=== PATIENT | female | born 1985 | race American Indian/Alaskan Native ===

== ENCOUNTER 2017-07-17 11:26 | Emergency (ER) | payer OTHER ==
--- NOTE | 2017-07-17 12:42 | OBDCSUM ---
Datetime: 07/17/2017 12:41 Discharged to, Provider: Home Follow up at, Provider: OB Disch Instr Activity: Normal activity Disch Instr Diet: Regular Discharge Instructions, Provider: Routine instructions given Discharge Time: 07/17/2017 12:41 Follow up in weeks, Provider: this week Disch Referrals: None Contraception discussed, Prov: Yes Discharge Diagnosis Prov Other: cerclage removed
--- NOTE | 2017-07-17 12:42 | OBHP ---
Datetime: 07/17/2017 12:15 IP Adm Impression: , intrauterine IP Chief Complaint Other: cerclage removal IP Admit Plan: Observation/Evaluation; Discharge home Admit Comment, IP Provider: Patient is a @ 35.5 wks for cerclage removal. Patient has a histo ry of 3 terminations with D_C, LEEP procedure, rescue Cerclage placement for short cervix at 20 weeks . Otherwise no other antepartum or surgical issues. No allergies, no currently medical Patient observed on CEFM, cleaned with betadine, speculum inserted, cerclage found and drabed with ring forcep, cut under knot, removed under entirety, shown to patient. VE=closed/50/-3. KLO=592 mod, +accels, no decels TOCO = one contraction noted A/P 1. Patient to be observed for labor. FHR reactive and reassuring. Will discharge patient and follo w up in office this week Pelvic Type - PN: Adequate Extremities - PN: Normal Abdomen - PN: Normal Back - PN: Normal Breast - PN: Normal Lungs - PN: Normal Heart - PN: Normal Thyroid - PN: Normal Neurologic - PN: Normal HEENT - PN: Normal General - PN: Normal FHR - Baseline A Provider: 135 Vital Signs Provider: Reviewed; Within Normal Limits NICHD Variability Prov Fetus A: Moderate 6-25bpm NICHD Accel Fetus A IP Provider: [id number] NICHD Decel Fetus A IP Provider: None Dilatation, Provider: closed Effacement, Provider: 50 Station, Provider: -3 Genitourinary Exam: Normal DTRs - PN: Normal
[2017-07-17 17:51] VITALS: BP 104/67; PULSE 93; TEMP 97.8; O2SAT 100
== END 2017-07-17 13:30 | disposition home or self-care (01) ==
LOC: H.EROB2 11:26 → H.L&D 11:58 → H.EROB2 13:30
DX: O26.873 Cervical shortening, third trimester (principal); Z3A.35 35 weeks gestation of pregnancy; O09.93 Supervision of high risk pregnancy, unspecified, third trimester

== ENCOUNTER 2017-08-20 20:45 | Inpatient (IN) | payer OTHER ==
[2017-08-20 20:58] VITALS: BMI 27.1
[2017-08-20] MEDS ORDERED: Lactated Ringer's 1,000 ML IV SCH (21:45)
[2017-08-20 22:15] VITALS: RESP 18; O2SAT 100
[2017-08-20 22:41] LABS: BASO % 0.4 % (0.0-2.0); EOS % 0.4 % (0.0-4.0); HEMOGLOBIN 10.9 g/dL (12.0-16.0); LYMPH # 2.6 K/uL (1.0-4.3); LYMPH % 26.2 % (20.0-40.0); MEAN CELL VOLUME 96.7 fl (81.0-99.0); MEAN CORPUSCULAR HGB CONC 32.1 g/dL (33.0-37.0); MEAN PLATELET VOLUME 7.9 fl (7.2-11.7); MONO # 0.9 K/uL (0.0-0.8); MONO % 9.3 % (0.0-10.0); NEUT # 6.4 K/uL (1.8-7.0); NEUT % 63.7 % (50.0-75.0); NRBC % 0.1 % (0.0-0.0); RBC 3.5 Mil/uL (3.80-5.20); RED CELL DISTRIBUTION WIDTH 13.6 % (11.5-14.5); WHITE BLOOD COUNT 10.1 K/uL (4.8-10.8)
[2017-08-21] MEDS ORDERED: Oxytocin 30 units/LR 500ML 30 U/500 ML BAG IV ONE (09:04)
--- NOTE | 2017-08-21 09:25 | OBPN ---
Datetime: 08/21/2017 09:21 IP Progress Impression: Normal progression of labor IP Informed Consent Obtain: Vaginal Delivery IP Procedures: Sterile Vag Exam IP Progress Plan: Continue present management Membranes, Provider: Intact Contraction Comments Provider: q 3-4 mins FHR - Baseline A Provider: 120 IP Progress Note Comment: Patient reports increased pain and pressure. Patient does not want pain me dication at this time. VE=2/70/-1 WMV=064 mod cuca, +accels, no decels TOCO = ctxning q 3-4 mins A/P 1. Patient progressing well. Will have pt to have light food this am, then will continue induction with Pitocin 2. Offered pain medication at any time 3. CEFM and TOCO Vital Signs Provider: Reviewed; Within Normal Limits NICHD Accel Fetus A IP Provider: [id number] NICHD Variability Prov Fetus A: Moderate 6-25bpm Dilatation, Provider: 2 Effacement, Provider: 70 Station, Provider: -1 NICHD Decel Fetus A IP Provider: None Datetime: 08/20/2017 22:05 FHR Category Provider Fetus A: Category I
[2017-08-21] MEDS: Lactated Ringer's 1,000 ML IV SCH ×2 (10:30→11:50)
[2017-08-21] MEDS ORDERED: Fentanyl/Bupivacaine HCl 250 ML EPI ONE (14:41)
[2017-08-21] MEDS ORDERED: Bupivacaine HCl 0.25% PF (10 ml) Inj ONE (14:41)
[2017-08-21] MEDS ORDERED: Nalbuphine 20 mg/ml Inj (1 ml) IVP PRN (15:00)
--- NOTE | 2017-08-21 16:53 | OBPN ---
Datetime: 08/21/2017 16:49 IP Progress Impression: Normal progression of labor IP Informed Consent Obtain: Vaginal Delivery IP Procedures: Sterile Vag Exam IP Progress Plan: Continue present management Membranes, Provider: Ruptured Contraction Comments Provider: q 3-4 min FHR - Baseline A Provider: 150 IP Progress Note Comment: Patient comfortable s/p epidural VE=3-4/50/-1, AROM, clear THO=975 mod cuca, +accels, early decels and variable decelerations TOCO = contraction q 3-4 mins A/P 1. Patient comfortable, continue Pitocin augmentation, currently at 2 units/min. 2. CEFm and TOCO 3. Re-evaluate as needed Vital Signs Provider: Reviewed; Within Normal Limits NICHD Variability Prov Fetus A: Moderate 6-25bpm Dilatation, Provider: 3-4 Effacement, Provider: 80 Station, Provider: -1 NICHD Decel Fetus A IP Provider: Early; Variable
--- NOTE | 2017-08-21 18:33 | OBPN ---
Datetime: 08/21/2017 18:28 IP Progress Impression: Normal progression of labor IP Informed Consent Obtain: Vaginal Delivery IP Procedures: Sterile Vag Exam IP Progress Plan: Continue present management Membranes, Provider: Ruptured Contraction Comments Provider: q 2-4 mins FHR - Baseline A Provider: 125 IP Progress Note Comment: Patient comfortable, progressing in labor VE=5-6/100/0 XLO=723 mod cuca, +accels, no decels TOCO = hussain q 2-4 mins A/P 1. patient progressing, now Pitocin @ 8mu/min. Continue augmentation 2. CEFM and TOCO 3. Re-evaluate as needed Vital Signs Provider: Reviewed; Within Normal Limits NICHD Accel Fetus A IP Provider: [id number] NICHD Variability Prov Fetus A: Moderate 6-25bpm Dilatation, Provider: 5-6 Effacement, Provider: 100 Station, Provider: 0 NICHD Decel Fetus A IP Provider: Early; Variable
[2017-08-21] MEDS ORDERED: Lidocaine 2% Inj (20ml) ONE (19:10)
[2017-08-21] MEDS: Oxytocin 30 units/LR 500ML 30 U/500 ML BAG IV SCH (23:20)
--- NOTE | 2017-08-21 23:37 | OBDS ---
MATERNAL INFORMATION Provider Comments: of live female over intact perineum in OTILIA with loose nuchal cord, 6l bs 1oz 9/9, followed by shoulders and rest of , infant placed on mother's chest, mouth and nose suctioned, cord clamped and cut, cord blood obtained, placenta delivered spontaneously, 2nd degree l aceration repaired with 2-0 vicryl rapide, [id number], pt tolerated procedure well LABOR SUMMARY EDC: 08/16/2017 00:00 No. Babies in Womb: 1 Attempted: No Labor Anesthesia: Epidural LABOR INFORMATION Reason for Induction: Postterm Onset of Labor: 08/21/2017 14:30 Cervical Ripening Agents: Cervidil Oxytocin: Augmentation Group B Beta Strep: Negative Steroids Given: None Reason Steroids Not Administered: Not Applicable MEMBRANES Membranes Rupture Method: Artificial Rupture of Membranes: 08/21/2017 14:37 Amniotic Fluid Color: Clear Amniotic Fluid Amount: Scant Amniotic Fluid Odor: Normal
[2017-08-21] MEDS ORDERED: Benzocaine/Menthol SPRAY TOP PRN (23:38)
[2017-08-22] MEDS: Oxycodone/Acetaminophen 5/325 mg Tab PO PRN ×3 (03:09→23:44)
[2017-08-22 06:39] LABS: HEMOGLOBIN 9.8 g/dL (12.0-16.0); MEAN CELL VOLUME 94.3 fl (81.0-99.0); MEAN CORPUSCULAR HEMOGLOBIN 30.5 pg (27.0-31.0); MEAN CORPUSCULAR HGB CONC 32.3 g/dL (33.0-37.0); RBC 3.21 Mil/uL (3.80-5.20); RED CELL DISTRIBUTION WIDTH 13.4 % (11.5-14.5); WHITE BLOOD COUNT 13.1 K/uL (4.8-10.8)
[2017-08-22] MEDS: Multivitamin With Minerals Tab PO SCH (11:25)
--- NOTE | 2017-08-22 23:48 | OBPPN ---
Datetime: 08/22/2017 23:44 PP Pain Prov: Within normal limits PP Nausea Prov: Denies PP Flatus Prov: Yes PP BM Prov: Yes PP Breasts Prov: Normal PP Heart Prov: Normal PP Lungs Prov: Normal PP Abdomen/Uterus Prov: Normal PP Lochia Prov: Normal PP Vulva/Perineum Prov: Normal PP CVA Tenderness Prov: Normal PP Extremities Prov: Normal PP Progress Prov: Normal PP Impression Prov: Normal progression PP Plan Prov: Continue present management PP Progress Note Prov: H/H 02/02 A: S/P day 1 Anemia asymtpomatic Rh neg PLAN: anticiapte dishcsarge in AM Rhogam if indicated
[2017-08-23] MEDS: Multivitamin With Minerals Tab PO SCH (09:44)
--- NOTE | 2017-08-23 10:25 | OBPPN ---
Datetime: 08/23/2017 10:23 PP Pain Prov: Within normal limits PP Nausea Prov: Denies PP Flatus Prov: Yes PP Lungs Prov: Normal PP Abdomen/Uterus Prov: Normal PP Lochia Prov: Not Done PP Vulva/Perineum Prov: Not Done PP CVA Tenderness Prov: Normal PP Extremities Prov: Normal PP Progress Prov: Normal PP Impression Prov: Normal progression PP Plan Prov: Discharge PP Progress Note Prov: day #2 Patient doing well without complaints ambulate and tolerating diet reports minimal lochia Vital signs stable afebrile Uterus firm below the umbilicus Extremities no Homans day #2 Patient cleared for discharge Nothing per vagina Follow-up with PMD in 6 weeks
--- NOTE | 2017-08-23 10:28 | OBDCSUM ---
Datetime: 07/17/2017 13:26 Discharged to, Provider: Home Discharge Instructions, Provider: Routine instructions given Discharge Diagnosis, Provider: Term Delivered Contraception discussed, Prov: Yes Disch Activity Restrictions: No exercising; No sexual activity; Nothing in vagina - [place], michelle santana Discharge Comment, Provider: Follow-up 6 weeks patient cleared for discharge Contraception after Delivery: Undecided
[2017-08-24 03:54] VITALS: BP 115/51; PULSE 75; TEMP 98.6
== END 2017-08-23 22:30 | disposition home or self-care (01) | DRG 373 ==
LOC: H.EROB2 20:45 → H.L&D 21:32 → H.OB/GYN 08-22 01:50
PROVIDERS: ADMIT Obstetrics & Gynecology Gynecology; ATTEND Obstetrics & Gynecology Gynecology
PROC: 4A1HXCZ Monitoring of Products of Conception, Cardiac Rate, External Approach (ICD-10-PCS; 2017-08-20)
PROC: 10E0XZZ Delivery of Products of Conception, External Approach (ICD-10-PCS; principal; 2017-08-21)
PROC: 0KQM0ZZ Repair Perineum Muscle, Open Approach (ICD-10-PCS; 2017-08-21)
DX: O76 Abnormality in fetal heart rate and rhythm complicating labor and delivery (principal); Z37.0 Single live birth; O48.0 Post-term pregnancy; Z3A.41 41 weeks gestation of pregnancy; O70.1 Second degree perineal laceration during delivery